=== PATIENT | male | born 1955 | race Caucasian/White ===

== ENCOUNTER 2017-02-02 16:49 | Inpatient (IN) | payer OTHER ==
[2017-02-02] VITALS (10 sets, daily range): BP systolic 117–141; BP diastolic 76–92; PULSE 102–117; RESP 18–26; TEMP 97.3; O2SAT 88–98
[2017-02-02] MEDS ORDERED: DIPHTH/TETANUS/ACEL PERTUSSIS (BOOSTER) 0.5 ML VIAL/PFS IM ONE (16:56)
[2017-02-02 17:19] LABS: AUTOMATED NEUTROPHIL # 6.1 TH/MM3 (1.8-7.7); BASOPHIL # 0.1 TH/MM3 (0-0.2); BASOPHIL % 0.7 % (0.0-2.0); EOSINOPHIL # 0.3 TH/MM3 (0-0.4); EOSINOPHIL % 3.2 % (0.0-4.0); HEMATOCRIT 33.9 % (39.0-51.0); HEMO FLAGS DIFF FINAL; LYMPH % 33.1 % (9.0-44.0); LYMPHOCYTE # 3.6 TH/MM3 (1.0-4.8); MEAN CELL VOLUME 87.5 FL (80.0-100.0); MEAN CORPUSCULAR HEMOGLOBIN 29.2 PG (27.0-34.0); MEAN CORPUSCULAR HGB CONC 33.4 % (32.0-36.0); MONO % 7.7 % (0.0-8.0); NEUT % 55.3 % (16.0-70.0); PLATELET COUNT 705 TH/MM3 (150-450); RED BLOOD COUNT 3.88 MIL/MM3 (4.50-5.90); RED CELL DISTRIBUTION WIDTH 13.8 % (11.6-17.2)
[2017-02-02 17:20] LABS: I-STAT POTASSIUM 4.4 MMOL/L (3.5-4.9)
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
[2017-02-02 17:28] LABS: APTT (PATIENT) 25.4 SEC (24.3-30.1)
[2017-02-02] MEDS ORDERED: methylPREDNISolone SOD SUCC 125 MG/2 ML VIAL IV PUSH ONE (17:45)
[2017-02-02] MEDS ORDERED: MORPHINE SULFATE 4 MG/ML INJ IV PUSH ONE (17:45)
[2017-02-02] MEDS ORDERED: RESP: ALBUTEROL 2.5 MG/IPRATROPIUM 0.5 MG NEB (SCH) NEB ONE (17:45)
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
[2017-02-02] MEDS ORDERED: IOHEXOL 350 MG/ML 10 ML VIAL (for RAD DIAG) IV ONE (19:57)
--- NOTE | 2017-02-02 20:28 | RADRPT ---
EXAM DATE/TIME: 02/02/2017 19:48 [facility] COMPARISON: CHEST SINGLE AP, February 02, 2017, 16:47. INDICATIONS : Abnormal chest radiograph. IV CONTRAST: 70 cc Omnipaque 350 (iohexol) IV RADIATION DOSE: 7.70 CTDIvol (mGy) MEDICAL HISTORY : None SURGICAL HISTORY : None. ENCOUNTER: Initial ACUITY: 1 day PAIN SCALE: 0/10 LOCATION: chest TECHNIQUE: Volumetric scanning of the chest was performed. Using automated exposure control and adjustment of t he mA and/or kV according to patient size, radiation dose was kept as low as reasonably achievable to obtain optimal diagnostic quality images. FINDINGS: LUNGS: There is severe baseline emphysema. There is extensive consolidative airspace disease with some assoc iated cystic cavitary change in the left upper lobe. In the contralateral right lung, there are sever al tiny nonspecific noncalcified nodular densities noted. PLEURA: There is no pleural thickening or pleural effusion. MEDIASTINUM: There is alesha enlargement in the left hilum and adjacent mediastinum which may be reactive. AXILLAE: Within normal limits. No lymphadenopathy. SKELETAL: Within normal limits for patient age. MISCELLANEOUS: The visualized upper abdominal organs demonstrate no acute abnormality. CONCLUSION: Left upper lobe consolidative changes. Nonspecific tiny nodules in the contralateral right lung. Poss ibly reactive left hilar and adjacent mediastinal adenopathy. Seth Boateng MD on February 02, 2017 at 20:16 Board Certified Radiologist. This report was verified electronically.
[2017-02-02] MEDS ORDERED: AZITHROMYCIN INJ 500 MG in SODIUM CHLOR 0.9% 250 ML INJ 250 ML IV ONE (21:00)
[2017-02-02] MEDS ORDERED: cefTRIAXone INJ 1,000 MG in SODIUM CHLORIDE 0.9% INJ 100 ML IV ONE (21:00)
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
[2017-02-02] MEDS ORDERED: MORPHINE SULFATE 4 MG/ML INJ IV PRN (21:15)
[2017-02-02] MEDS ORDERED: ACETAMINOPHEN 325 MG TAB PO PRN (21:15)
[2017-02-02] MEDS ORDERED: SODIUM CHLORIDE 0.9% FLUSH 10 ML FLUSH IV FLUSH PRN (21:15)
[2017-02-02] MEDS ORDERED: ONDANSETRON HCL 4 MG/2 ML VIAL IVP PRN (21:15)
[2017-02-02] MEDS ORDERED: BISACODYL 10 MG SUPP RECTAL PRN (21:15)
[2017-02-02] MEDS: SODIUM CHLOR 0.9% 1000 ML INJ 1,000 ML IV SCH (22:02)
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
[2017-02-02] MEDS: methylPREDNISolone SOD SUCC 40 MG/1 ML VIAL IV PUSH SCH (23:14)
[2017-02-02] MEDS: ACETAMINOPHEN/HYDROcodone 325 MG/5 MG TAB PO PRN (23:17)
[2017-02-03] VITALS (8 sets, daily range): BP systolic 97–125; BP diastolic 64–85; PULSE 93–102; RESP 17–18; TEMP 96.1–97.4; O2SAT 82–96
[2017-02-03] MEDS: methylPREDNISolone SOD SUCC 40 MG/1 ML VIAL IV PUSH SCH ×3 (05:45→17:59)
[2017-02-03] MEDS: SILVER SULFADIAZINE 1% CR 400 GM JAR TOPICAL SCH (05:52)
[2017-02-03 07:09] LABS: BASOPHIL % 0.1 % (0.0-2.0); HEMO FLAGS DIFF FINAL; LYMPHOCYTE # 1.1 TH/MM3 (1.0-4.8); MEAN CELL VOLUME 86.6 FL (80.0-100.0); MEAN CORPUSCULAR HGB CONC 32.4 % (32.0-36.0); MONO % 2.1 % (0.0-8.0); NEUT % 84.8 % (16.0-70.0); PLATELET COUNT 600 TH/MM3 (150-450); RED BLOOD COUNT 3.92 MIL/MM3 (4.50-5.90); RED CELL DISTRIBUTION WIDTH 13.8 % (11.6-17.2); WHITE BLOOD COUNT 8.2 TH/MM3 (4.0-11.0)
[2017-02-03 07:38] LABS: ALT (GPT) 33 U/L (12-78); ANION GAP 5 MEQ/L (5-15); AST (GOT) 18 U/L (15-37); BICARBONATE 32.7 MEQ/L (21.0-32.0); BLOOD UREA NITROGEN 14 MG/DL (7-18); CHLORIDE 100 MEQ/L (98-107); GLOMERULAR FILTRATION RATE 210 ML/MIN (>89); POTASSIUM 4.5 MEQ/L (3.5-5.1); SODIUM (NA) 138 MEQ/L (136-145)
[2017-02-03 07:40] LABS: ALKALINE PHOSPHATASE 105 U/L (45-117); TOTAL BILIRUBIN ADULT 0.1 MG/DL (0.2-1.0)
[2017-02-03] MEDS: RESP: ALBUTEROL 2.5 MG/IPRATROPIUM 0.5 MG NEB (SCH) NEB ×4 (08:24→20:20)
[2017-02-03] MEDS: ACETAMINOPHEN/HYDROcodone 325 MG/5 MG TAB PO PRN ×2 (08:52→13:18)
[2017-02-03] MEDS: SODIUM CHLORIDE 0.9% FLUSH 10 ML FLUSH IV FLUSH SCH ×2 (09:00→21:00)
[2017-02-03] MEDS: BUDESONIDE-FORMOTEROL 160/4.5 MCG INHALER INH SCH ×2 (09:27→21:12)
[2017-02-03] MEDS: SODIUM CHLOR 0.9% 1000 ML INJ 1,000 ML IV SCH (10:50)
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
[2017-02-03] MEDS: RESP: ALBUTEROL 2.5 MG/IPRATROPIUM 0.5 MG NEB (PRN) NEB (18:22)
[2017-02-03] MEDS ORDERED: AZITHROMYCIN INJ 500 MG in SODIUM CHLOR 0.9% 250 ML INJ 250 ML IV SCH (21:00)
[2017-02-03] MEDS: AZITHROMYCIN 250 MG TAB PO SCH (21:14)
[2017-02-03] MEDS: cefTRIAXone INJ 1,000 MG in SODIUM CHLORIDE 0.9% INJ 100 ML IV SCH (21:14)
[2017-02-04] VITALS (9 sets, daily range): BP systolic 96–126; BP diastolic 66–89; PULSE 91–108; RESP 17–18; TEMP 96–98.2; O2SAT 92–98
[2017-02-04] MEDS: RESP: ALBUTEROL 2.5 MG/IPRATROPIUM 0.5 MG NEB (PRN) NEB ×6 (00:02→23:52)
[2017-02-04] MEDS: methylPREDNISolone SOD SUCC 40 MG/1 ML VIAL IV PUSH SCH ×4 (00:06→18:46)
[2017-02-04] MEDS: SILVER SULFADIAZINE 1% CR 400 GM JAR TOPICAL SCH (07:52)
[2017-02-04] MEDS: BUDESONIDE-FORMOTEROL 160/4.5 MCG INHALER INH SCH ×2 (07:53→20:09)
[2017-02-04] MEDS: SODIUM CHLORIDE 0.9% FLUSH 10 ML FLUSH IV FLUSH SCH ×2 (07:53→20:10)
[2017-02-04] MEDS: RESP: ALBUTEROL 2.5 MG/IPRATROPIUM 0.5 MG NEB (SCH) NEB (08:50)
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
[2017-02-04] MEDS: SODIUM CHLOR 0.9% 1000 ML INJ 1,000 ML IV SCH (14:24)
[2017-02-04] MEDS: cefTRIAXone INJ 1,000 MG in SODIUM CHLORIDE 0.9% INJ 100 ML IV SCH (20:09)
[2017-02-04] MEDS: AZITHROMYCIN 250 MG TAB PO SCH (20:09)
[2017-02-05] VITALS (7 sets, daily range): BP systolic 113–135; BP diastolic 78–91; PULSE 79–92; RESP 16–18; TEMP 95.5–97.3; O2SAT 94–96
[2017-02-05] MEDS: methylPREDNISolone SOD SUCC 40 MG/1 ML VIAL IV PUSH SCH ×3 (00:13→12:00)
[2017-02-05] MEDS: RESP: ALBUTEROL 2.5 MG/IPRATROPIUM 0.5 MG NEB (PRN) NEB ×3 (04:44→16:25)
[2017-02-05] MEDS: BUDESONIDE-FORMOTEROL 160/4.5 MCG INHALER INH SCH (08:19)
[2017-02-05] MEDS: SODIUM CHLORIDE 0.9% FLUSH 10 ML FLUSH IV FLUSH SCH (08:20)
[2017-02-05] MEDS: SILVER SULFADIAZINE 1% CR 400 GM JAR TOPICAL SCH (08:20)
[2017-02-05] MEDS ORDERED: AZIT250T3 PO (10:09)
[2017-02-05] MEDS ORDERED: SYMB160A INH (10:10)
[2017-02-05] MEDS ORDERED: SILV1CRE20 TOPICAL (10:10)
[2017-02-05] MEDS ORDERED: IPRA17I INH (10:10)
[2017-02-05] MEDS ORDERED: PRED5PAK PO (10:10)
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
[2017-02-05] MEDS: SODIUM CHLOR 0.9% 1000 ML INJ 1,000 ML IV SCH (13:42)
== END 2017-02-05 16:51 | disposition home or self-care (01) | DRG 928 ==
LOC: NEPI 16:49 → EDBD 21:12 → NEDA 21:12 → N06A 22:39
PROVIDERS: ADMIT Hospitalist; ATTEND Hospitalist
DX: T20.30XA Burn of third degree of head, face, and neck, unspecified site, initial encounter (principal); J15.9 Unspecified bacterial pneumonia; J96.20 Acute and chronic respiratory failure, unspecified whether with hypoxia or hypercapnia; J44.1 Chronic obstructive pulmonary disease with (acute) exacerbation; Z99.81 Dependence on supplemental oxygen; T20.20XA Burn of second degree of head, face, and neck, unspecified site, initial encounter; F17.210 Nicotine dependence, cigarettes, uncomplicated; Z66 Do not resuscitate; X08.8XXA Exposure to other specified smoke, fire and flames, initial encounter; Y93.89 Activity, other specified; Y92.009 Unspecified place in unspecified non-institutional (private) residence as the place of occurrence of the external cause; Y99.9 Unspecified external cause status; Z88.0 Allergy status to penicillin; R91.8 Other nonspecific abnormal finding of lung field; D75.89 Other specified diseases of blood and blood-forming organs; T23.001A Burn of unspecified degree of right hand, unspecified site, initial encounter; T23.002A Burn of unspecified degree of left hand, unspecified site, initial encounter
CPT/HCPCS: 71010; 71260; 80053; 82435; 82565; 82947; 84132; 84295; 84520; 85025; 85610; 85730; 86850; 86900; 86901; 90471; 90715; 94640; 94664; 96374; 96375; 99291; G0390; J0456; J0696; J2270; J2920; J2930; J7030; J7050; Q9967

== ENCOUNTER 2017-06-03 16:14 | Inpatient (IN) | payer OTHER ==
[~2017-06-03] VITALS: Ht 175.3 cm; Wt 65.0 kg
[~2017-06-03 16:14] MED LIST: AZIT250T3 PO; IPRA17I INH; PRED5PAK PO; SILV1CRE20 TOPICAL; SYMB160A INH
[2017-06-03 16:19] VITALS: BP 154/94; PULSE 112; RESP 24; TEMP 98.3
[2017-06-03] MEDS ORDERED: SODIUM CHLORIDE 0.9% FLUSH 10 ML FLUSH IVF PRN ×2 (16:30→18:15)
[2017-06-03 16:35] VITALS: BP 154/94; PULSE 105; RESP 22; TEMP 98.3; O2SAT 95
--- NOTE | 2017-06-03 16:41 | PD ---
HPI Chief Complaint: Chest Pain Time Seen by Provider: 16:24 Travel History International Travel<30 days: No Contact w/Intl Traveler<30days: No Traveled to known affect area: No History of Present Illness HPI 61-year-old male complains of chest pain and shortness of breath. Patient has history COPD. Patient states that he started smoking a few days ago. Patient states that he has productive cough for the past several days. Patient states that the shortness of breath is worse for the past 2 days. Patient denies any fever chills. Patient complain left sided chest pain. Patient states the pain is sharp and intermittent and localized to left chest. Patient denies any pain radiation. Patient denies palpitation nausea vomiting diaphoresis. Patient denies any fever chills. Patient is on home O2, 3 L nasal ranula. Patient has been using nebulizer machine at home. Patient denies any history of CAD. Patient denies history hypertension, diabetes, dyslipidemia. EMS was called. Patient was given albuterol treatment 1 and Solu-Medrol 125 mg IV. PFSH Past Medical History Cardiovascular Problems: Yes COPD: Yes Respiratory: Yes (COPD, PNEUMONIA) ?: Not Social History Alcohol Use: No Tobacco Use: Yes Substance Use: No Allergies-Medications (Allergen,Severity, Reaction): Coded Allergies: penicillin G (Unverified Allergy, Severe, Anaphylaxis, 06/03/17) Reported Meds & Prescriptions Reported Meds & Active Scripts Active Prednisone (21) 5 mg tab Dose Pack (Prednisone) 5 Mg Dspk 5 Mg PO DIRECTED Atrovent HFA 12.9 GM Inh (Ipratropium [place]) 17 Mcg/Act Aer 2 Puff INH Q6HR PRN Silvadene Topical (Silver Sulfadiazine) 1 % Cream 1 Applic TOPICAL DAILY Symbicort Inh (Budesonide/Formoterol Fumarate) 160-4.5 Mcg/Act Aero 2 Puff INH Q12HR Azithromycin 250 Mg Tab 500 Mg PO DAILY@21 Review of Systems General / Constitutional: No: Fever Eyes: No: Visual changes HENT: No: Headaches Cardiovascular: Positive: Chest Pain or Discomfort Respiratory: Positive: Shortness of Breath, Wheezing Gastrointestinal: No: Abdominal Pain Genitourinary: No: Dysuria Musculoskeletal: No: Pain Skin: No Rash Neurologic: No: Weakness Psychiatric: No: Depression Endocrine: No: Polydipsia Hematologic/Lymphatic: No: Easy Bruising Physical Exam Narrative GENERAL: Well-nourished, well-developed patient. SKIN: Focused skin assessment warm/dry. HEAD: Normocephalic. EYES: No scleral icterus. No injection or drainage. NECK: Supple, trachea midline. No JVD or lymphadenopathy. CARDIOVASCULAR: Regular rate and rhythm without murmurs, gallops, or rubs. RESPIRATORY: Breath sounds decreased bilaterally. Patient with accessory muscle use. Patient has poor air exchange. Patient has mild bilateral wheezes. GASTROINTESTINAL: Abdomen soft, non-tender, nondistended. MUSCULOSKELETAL: No cyanosis, or edema. BACK: Nontender without obvious deformity. No CVA tenderness. Neurologic exam normal. Data Data Last Documented VS Vital Signs Date Time Temp Pulse Resp B/P (MAP) Pulse Ox O2 Delivery O2 Flow Rate FiO2 06/03/17 16:35 98.3 105 22 154/94 (114) 95 Nasal Cannula 4.00 Orders Orders Complete Blood Count With Diff (06/03/17 16:25) Comprehensive Metabolic Panel (06/03/17 16:25) B-Type Natriuretic Peptide (06/03/17 16:25) Act Partial Throm Time (Ptt) (06/03/17 16:25) Prothrombin Time / Inr (Pt) (06/03/17 16:25) Ckmb (Isoenzyme) Profile (06/03/17 16:25) Troponin I (06/03/17 16:25) Influenzae A/B Antigen (06/03/17 16:25) Blood Culture (06/03/17 16:25) Iv Access Insert/Monitor (06/03/17 16:25) Electrocardiogram (06/03/17 16:25) Ecg Monitoring (06/03/17 16:25) Oximetry (06/03/17 16:25) Oxygen Administration (06/03/17 16:25) Chest, Single Ap (06/03/17 16:25) Sodium Chloride 0.9% Flush (Ns Flush) (06/03/17 16:30) Albuterol-Ipratropium Neb (Duoneb Neb) (06/03/17 16:30) Ct Thorax/ Chest W Iv Contrast (06/03/17 17:17) CKMB (06/03/17 16:30) CKMB% (06/03/17 16:30) Ceftriaxone Inj (Rocephin Inj) (06/03/17 17:45) Azithromycin Inj (Zithromax Inj) (06/03/17 17:45) Labs Laboratory Tests Test 06/03/17 16:30 White Blood Count 9.1 TH/MM3 Red Blood Count 4.83 MIL/MM3 Hemoglobin 14.0 GM/DL Hematocrit 41.9 % Mean Corpuscular Volume 86.8 FL Mean Corpuscular Hemoglobin 28.9 PG Mean Corpuscular Hemoglobin Concent 33.3 % Red Cell Distribution Width 13.7 % Platelet Count 297 TH/MM3 Mean Platelet Volume 7.2 FL Neutrophils (%) (Auto) 67.7 % Lymphocytes (%) (Auto) 21.7 % Monocytes (%) (Auto) 7.3 % Eosinophils (%) (Auto) 2.6 % Basophils (%) (Auto) 0.7 % Neutrophils # (Auto) 6.2 TH/MM3 Lymphocytes # (Auto) 2.0 TH/MM3 Monocytes # (Auto) 0.7 TH/MM3 Eosinophils # (Auto) 0.2 TH/MM3 Basophils # (Auto) 0.1 TH/MM3 CBC Comment DIFF FINAL Differential Comment Prothrombin Time 10.7 SEC Prothromb Time International Ratio 1.0 RATIO Activated Partial Thromboplast Time 28.2 SEC Blood Urea Nitrogen 9 MG/DL Creatinine 0.59 MG/DL Random Glucose 95 MG/DL Total Protein 7.7 GM/DL Albumin 3.4 GM/DL Calcium Level 9.1 MG/DL Alkaline Phosphatase 125 U/L Aspartate Amino Transf (AST/SGOT) 19 U/L Alanine Aminotransferase (ALT/SGPT) 16 U/L Total Bilirubin 0.4 MG/DL Sodium Level 140 MEQ/L Potassium Level 4.7 MEQ/L Chloride Level 102 MEQ/L Carbon Dioxide Level 33.6 MEQ/L Anion Gap 4 MEQ/L Estimat Glomerular Filtration Rate 140 ML/MIN Total Creatine Kinase 103 U/L Creatine Kinase MB 1.5 NG/ML Troponin I LESS THAN 0.02 NG/ML MDM Medical Decision Making Medical Screen Exam Complete: Yes Emergency Medical Condition: Yes Interpretation(s) Last Impressions Chest X-Ray 06/03/17 9855 Signed Impressions: Service Date/Time: Saturday, June 03, 2017 16:50 - CONCLUSION: Residual or recurrent mild left lung infiltrates. Seth Boateng MD CBC within normal limit. CMP within normal limit. Bicarbonate 33.6. Creatinine 0.59. Cardiac enzymes are normal. Differential Diagnosis Differential diagnosis including acute exacerbation COPD, bronchitis, pneumonia. Narrative Course 61-year-old male with shortness of breath and expiratory wheezes and poor air exchange. Patient was given Solu Medrol and albuterol treatment by EMS. Albuterol with Atrovent unit dose treatment 3. Rocephin 1 g IV. Zithromax 500 mg IV. Diagnosis Primary Impression: Community acquired bacterial pneumonia Additional Impression: COPD with acute exacerbation Admitting Information Admitting Physician Requests: Admit Dennys Madrigal MD Jun 03, 2017 16:41
[2017-06-03 16:47] LABS: AUTOMATED NEUTROPHIL # 6.2 TH/MM3 (1.8-7.7); BASOPHIL # 0.1 TH/MM3 (0-0.2); BASOPHIL % 0.7 % (0.0-2.0); EOSINOPHIL # 0.2 TH/MM3 (0-0.4); EOSINOPHIL % 2.6 % (0.0-4.0); HEMATOCRIT 41.9 % (39.0-51.0); HEMO FLAGS DIFF FINAL; LYMPH % 21.7 % (9.0-44.0); MEAN CELL VOLUME 86.8 FL (80.0-100.0); MEAN CORPUSCULAR HEMOGLOBIN 28.9 PG (27.0-34.0); MEAN CORPUSCULAR HGB CONC 33.3 % (32.0-36.0); MONO % 7.3 % (0.0-8.0); NEUT % 67.7 % (16.0-70.0); PLATELET COUNT 297 TH/MM3 (150-450); RED BLOOD COUNT 4.83 MIL/MM3 (4.50-5.90); RED CELL DISTRIBUTION WIDTH 13.7 % (11.6-17.2); WHITE BLOOD COUNT 9.1 TH/MM3 (4.0-11.0)
[2017-06-03] MEDS: RESP: ALBUTEROL 2.5 MG/IPRATROPIUM 0.5 MG NEB (SCH) INH ×2 (16:55→20:00)
--- NOTE | 2017-06-03 16:58 | RADRPT ---
EXAM DATE/TIME: 06/03/2017 16:50 [facility] COMPARISON: CHEST SINGLE AP, February 02, 2017, 16:47. INDICATIONS : Left side chest pain, short of breath. MEDICAL HISTORY : Chronic obstructive pulmonary disease. SURGICAL HISTORY : None. ENCOUNTER: Initial ACUITY: 3 days PAIN SCORE: 4/10 LOCATION: Left chest FINDINGS: There is patchy airspace opacity in the left lung, primarily in the left perihilar and suprahilar reg ion laterally at site of previous large mass or consolidative infiltrate noted on previous exam. Righ t lung is clear with prominent changes of bullous emphysema. Cardiac contours are grossly stable. CONCLUSION: Residual or recurrent mild left lung infiltrates. Seth Boateng MD on June 03, 2017 at 16:55 Board Certified Radiologist. This report was verified electronically.
[2017-06-03 16:59] LABS: APTT (PATIENT) 28.2 SEC (24.3-30.1); PROTHROMBIN TIME - PATIENT 10.7 SEC (9.8-11.6)
[2017-06-03 17:21] LABS: ALKALINE PHOSPHATASE 125 U/L (45-117); ALT (GPT) 16 U/L (12-78); ANION GAP 4 MEQ/L (5-15); AST (GOT) 19 U/L (15-37); BICARBONATE 33.6 MEQ/L (21.0-32.0); BLOOD UREA NITROGEN 9 MG/DL (7-18); CHLORIDE 102 MEQ/L (98-107); CREATINE KINASE 103 U/L (39-308); GLOMERULAR FILTRATION RATE 140 ML/MIN (>89); POTASSIUM 4.7 MEQ/L (3.5-5.1); SODIUM (NA) 140 MEQ/L (136-145); TOTAL BILIRUBIN ADULT 0.4 MG/DL (0.2-1.0)
[2017-06-03 17:34] LABS: CKMB 1.5 NG/ML (0.5-3.6)
[2017-06-03] MEDS ORDERED: cefTRIAXone INJ 1,000 MG in SODIUM CHLORIDE 0.9% INJ 100 ML IV ONE (17:45)
[2017-06-03] MEDS ORDERED: AZITHROMYCIN INJ 500 MG in SODIUM CHLOR 0.9% 250 ML INJ 250 ML IV ONE (17:45)
[2017-06-03] MEDS ORDERED: IOHEXOL 350 MG/ML 10 ML VIAL (for RAD DIAG) IVCONTRAST ONE (18:02)
[2017-06-03] MEDS ORDERED: ACETAMINOPHEN 325 MG TAB PO PRN ×3 (18:15→18:30)
[2017-06-03] MEDS ORDERED: ONDANSETRON HCL 4 MG/2 ML VIAL IV PRN (18:15)
--- NOTE | 2017-06-03 18:19 | RADRPT ---
EXAM DATE/TIME: 06/03/2017 17:54 [facility] COMPARISON: CHEST SINGLE AP, June 03, 2017, 16:50. CT THORAX W CONTRAST, February 02, 2017, 19:48. INDICATIONS : Abnormal chest xray. Mass. IV CONTRAST: 70 cc Omnipaque 350 (iohexol) IV RADIATION DOSE: 3.44 CTDIvol (mGy) MEDICAL HISTORY : Chronic obstructive pulmonary disease. SURGICAL HISTORY : Hernia. ENCOUNTER: Initial ACUITY: 1 day PAIN SCALE: 0/10 LOCATION: chest TECHNIQUE: Volumetric scanning of the chest was performed. Using automated exposure control and adjustment of t he mA and/or kV according to patient size, radiation dose was kept as low as reasonably achievable to obtain optimal diagnostic quality images. DICOM format image data is available electronically for review and comparison. Follow-up recommendations for detected pulmonary nodules are based at a minimum on nodule size and pa tient risk factors according to Fleischner Society Guidelines. FINDINGS: LUNGS: Severe emphysematous chronic obstructive pulmonary disease is again noted. Bronchiectasis with associ ated interstitial thickening is identified in the left upper lobe. A 1 cm nodule is identified in the lingula. A small pleural based nodular density is seen in the right posterior costophrenic angle keagan suring 7 mm. There is adjacent clinical banding suggesting scar or atelectasis. PLEURA: Pleural thickening is identified along the posterior left upper lobe. There is no evidence of pleural effusion. MEDIASTINUM: The heart and great vessels demonstrate no acute abnormality. Small subcentimeter lymph nodes are see n in the aortopulmonary window. AXILLAE: Within normal limits. No lymphadenopathy. SKELETAL: Within normal limits for patient age. MISCELLANEOUS: The visualized upper abdominal organs demonstrate no acute abnormality. CONCLUSION: 1. Left upper lobe bronchiectasis with associated interstitial infiltrate versus post inflammatory sc arring. No evidence of consolidating airspace disease. 2. 1 cm lingular nodule. 3. 7 mm right lower lobe nodule. 4. Consider PET CT for further evaluation. Anthony Olivas MD on June 03, 2017 at 18:05 Board Certified Radiologist. This report was verified electronically.
[2017-06-03] MEDS ORDERED: LACTULOSE SYRUP 20 GM/30 ML CUP PO PRN (18:30)
[2017-06-03] MEDS ORDERED: MORPHINE SULFATE 4 MG/ML INJ IV PRN ×2 (18:30)
[2017-06-03] MEDS ORDERED: MAGNESIUM HYDROXIDE SUSP 30 ML CUP PO PRN (18:30)
[2017-06-03] MEDS ORDERED: NALOXONE HCL 0.4 MG/ML AMP IV PRN (18:30)
[2017-06-03] MEDS ORDERED: oxyCODONE/ACETAMINOPHEN 10 MG/325 MG TAB PO PRN (18:30)
[2017-06-03] MEDS ORDERED: GLUCAGON 1 MG/ML VIAL OTHER PRN (18:30)
[2017-06-03] MEDS ORDERED: SODIUM CHLORIDE 0.9% FLUSH 10 ML FLUSH IV FLUSH PRN ×2 (18:30)
[2017-06-03] MEDS ORDERED: oxyCODONE/ACETAMINOPHEN 5 MG/325 MG TAB PO PRN (18:30)
[2017-06-03] MEDS ORDERED: ONDANSETRON HCL 4 MG/2 ML VIAL IVP PRN (18:30)
[2017-06-03] MEDS ORDERED: BISACODYL 10 MG SUPP RECTAL PRN (18:30)
[2017-06-03] MEDS ORDERED: PROCHLORPERAZINE 25 MG SUPP PR PRN (18:30)
[2017-06-03] MEDS ORDERED: SENNOSIDES 8.6 MG TAB PO PRN (18:30)
[2017-06-03] MEDS ORDERED: DEXTROSE 50% IN WATER 50 ML VIAL(D50) IV PRN (18:30)
[2017-06-03 18:34] VITALS: O2SAT 95
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
[2017-06-03] MEDS ORDERED: ALPRAZolam 0.25 MG TAB PO PRN (19:00)
[2017-06-03 20:58] LABS: BLOOD, URINE SMALL (NEG); COMMENT (UR) CULT NOT INDICATED; CULTURE IF INDICATED CULT NOT INDICATED; GLUCOSE,URINE NEG (NEG); KETONE, URINE NEG (NEG); NITRITE,URINE NEG (NEG); PH, URINE 7.5 (5.0-8.5); URINE COLOR LIGHT-YELLOW (YELLW/STRAW)
[2017-06-03] MEDS: BUDESONIDE-FORMOTEROL 160/4.5 MCG INHALER INH SCH (21:00)
[2017-06-03] MEDS ORDERED: SODIUM CHLORIDE 0.9% FLUSH 10 ML FLUSH IV FLUSH SCH ×2 (21:00)
[2017-06-03 21:20] VITALS: BP 135/79; PULSE 79; RESP 18; TEMP 97.5; O2SAT 97
[2017-06-03] MEDS: ENOXAPARIN SODIUM 40 MG/0.4 ML SYRINGE SQ SCH (21:56)
[2017-06-03] MEDS: SODIUM CHLORIDE 0.9% FLUSH 10 ML FLUSH IV FLUSH SCH (21:57)
[2017-06-03] MEDS: DOCUSATE SODIUM 50 MG/SENNA 8.6 MG TAB PO SCH (21:57)
[2017-06-03] MEDS: FAMOTIDINE 20 MG TAB PO SCH (21:57)
[2017-06-03] MEDS: methylPREDNISolone SOD SUCC 125 MG/2 ML VIAL IVP SCH (21:57)
[2017-06-03] MEDS: guaiFENesin E.R. 600 MG TAB PO SCH (21:57)
[2017-06-03] MEDS: RESP: ALBUTEROL 2.5 MG/3 ML NEB (PRN) INH (22:22)
[2017-06-03 22:27] VITALS: O2SAT 96
[2017-06-03 23:45] VITALS: BP 119/73; PULSE 84; RESP 18; TEMP 96.9; O2SAT 94
[2017-06-04] VITALS (8 sets, daily range): BP systolic 108–125; BP diastolic 70–81; PULSE 92–107; RESP 17–19; TEMP 94–97.9; O2SAT 91–95
[2017-06-04 01:01] LABS: CREATINE KINASE 92 U/L (39-308)
[2017-06-04] MEDS: RESP: ALBUTEROL 2.5 MG/IPRATROPIUM 0.5 MG NEB (SCH) INH ×6 (01:35→19:18)
[2017-06-04] MEDS: methylPREDNISolone SOD SUCC 125 MG/2 ML VIAL IVP SCH ×4 (04:11→21:54)
[2017-06-04 05:11] LABS: ALKALINE PHOSPHATASE 115 U/L (45-117); ALT (GPT) 16 U/L (12-78); ANION GAP 7 MEQ/L (5-15); AST (GOT) 8 U/L (15-37); BICARBONATE 30.4 MEQ/L (21.0-32.0); BLOOD UREA NITROGEN 15 MG/DL (7-18); CHLORIDE 100 MEQ/L (98-107); CREATINE KINASE 102 U/L (39-308); FREE T4 1.02 NG/DL (0.76-1.46); GLOMERULAR FILTRATION RATE 111 ML/MIN (>89); MAGNESIUM 2.2 MG/DL (1.5-2.5); POTASSIUM 3.9 MEQ/L (3.5-5.1); SODIUM (NA) 137 MEQ/L (136-145); TOTAL BILIRUBIN ADULT 0.1 MG/DL (0.2-1.0)
[2017-06-04 05:41] LABS: AUTOMATED NEUTROPHIL # 5.3 TH/MM3 (1.8-7.7); BASOPHIL % 0.1 % (0.0-2.0); EOSINOPHIL % 0.1 % (0.0-4.0); HEMATOCRIT 38.5 % (39.0-51.0); HEMO FLAGS DIFF FINAL; LYMPH % 11.2 % (9.0-44.0); LYMPHOCYTE # 0.7 TH/MM3 (1.0-4.8); MEAN CELL VOLUME 86.7 FL (80.0-100.0); MEAN CORPUSCULAR HEMOGLOBIN 28.7 PG (27.0-34.0); MEAN CORPUSCULAR HGB CONC 33.2 % (32.0-36.0); NEUT % 86.6 % (16.0-70.0); PLATELET COUNT 254 TH/MM3 (150-450); RED BLOOD COUNT 4.45 MIL/MM3 (4.50-5.90); RED CELL DISTRIBUTION WIDTH 13.9 % (11.6-17.2); WHITE BLOOD COUNT 6.1 TH/MM3 (4.0-11.0)
[2017-06-04] MEDS: FAMOTIDINE 20 MG TAB PO SCH ×2 (08:51→21:55)
[2017-06-04] MEDS: guaiFENesin E.R. 600 MG TAB PO SCH ×2 (08:51→21:54)
[2017-06-04] MEDS: DOCUSATE SODIUM 50 MG/SENNA 8.6 MG TAB PO SCH ×2 (08:51→21:55)
[2017-06-04] MEDS: SODIUM CHLORIDE 0.9% FLUSH 10 ML FLUSH IV FLUSH SCH ×2 (08:52→21:54)
[2017-06-04] MEDS: BUDESONIDE-FORMOTEROL 160/4.5 MCG INHALER INH SCH ×2 (08:53→21:55)
[2017-06-04] MEDS: SILVER SULFADIAZINE 1% CR 50 GM JAR TOPICAL SCH (09:00)
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
[2017-06-04] MEDS ORDERED: DEXTROSE 50% IN WATER 50 ML VIAL(D50) IV PRN (11:00)
[2017-06-04] MEDS ORDERED: GLUCAGON 1 MG/ML VIAL OTHER PRN (11:00)
--- NOTE | 2017-06-04 11:16 | EKG ---
Date Performed: 06/03/2017 Time Performed: 16:29:32 PTAGE: 61 years EKG: Sinus rhythm WITH SINUS ARRHYTHMIA NORMAL ECG NO PREVIOUS TRACING DOCTOR: Lindsey Edmondson Interpretating Date/Time 06/04/2017 11:14:51
[2017-06-04] MEDS: INSULIN ASPART SUPPLEMENTAL SCALE SQ SCH ×3 (12:32→21:58)
[2017-06-04 13:50] LABS: HEMOGLOBIN A1a 1.1 %; HEMOGLOBIN Ao 82.5 %; HEMOGLOBIN LA1C 3.3 %; HEMOGLOBIN P3 4.6 %
[2017-06-04] MEDS: AZITHROMYCIN INJ 500 MG in SODIUM CHLOR 0.9% 250 ML INJ 250 ML IV SCH (16:16)
[2017-06-04] MEDS: RESP: ALBUTEROL 2.5 MG/3 ML NEB (PRN) INH (18:03)
[2017-06-04] MEDS: cefTRIAXone INJ 1,000 MG in SODIUM CHLORIDE 0.9% INJ 100 ML IV SCH (21:52)
[2017-06-04] MEDS: ENOXAPARIN SODIUM 40 MG/0.4 ML SYRINGE SQ SCH (21:55)
[2017-06-05] VITALS (11 sets, daily range): BP systolic 105–133; BP diastolic 70–92; PULSE 85–106; RESP 16–18; TEMP 96.4–98.5; O2SAT 92–100
[2017-06-05] MEDS: RESP: ALBUTEROL 2.5 MG/IPRATROPIUM 0.5 MG NEB (SCH) INH ×6 (01:26→19:09)
[2017-06-05] MEDS: methylPREDNISolone SOD SUCC 125 MG/2 ML VIAL IVP SCH ×4 (03:00→21:07)
[2017-06-05] MEDS: INSULIN ASPART SUPPLEMENTAL SCALE SQ SCH ×4 (06:11→21:00)
[2017-06-05 08:57] LABS: AUTOMATED NEUTROPHIL # 13.2 TH/MM3 (1.8-7.7); HEMATOCRIT 37.1 % (39.0-51.0); HEMO FLAGS DIFF FINAL; LYMPH % 8.3 % (9.0-44.0); LYMPHOCYTE # 1.3 TH/MM3 (1.0-4.8); MEAN CELL VOLUME 86.7 FL (80.0-100.0); MEAN CORPUSCULAR HEMOGLOBIN 28.6 PG (27.0-34.0); MONO % 6.2 % (0.0-8.0); NEUT % 85.5 % (16.0-70.0); PLATELET COUNT 255 TH/MM3 (150-450); RED BLOOD COUNT 4.28 MIL/MM3 (4.50-5.90); RED CELL DISTRIBUTION WIDTH 14.1 % (11.6-17.2); WHITE BLOOD COUNT 15.4 TH/MM3 (4.0-11.0)
[2017-06-05] MEDS: DOCUSATE SODIUM 50 MG/SENNA 8.6 MG TAB PO SCH ×2 (09:00→21:05)
[2017-06-05] MEDS: BUDESONIDE-FORMOTEROL 160/4.5 MCG INHALER INH SCH ×2 (09:00→21:00)
[2017-06-05] MEDS: guaiFENesin E.R. 600 MG TAB PO SCH ×2 (09:16→21:06)
[2017-06-05] MEDS: FAMOTIDINE 20 MG TAB PO SCH ×2 (09:16→21:07)
[2017-06-05] MEDS: SODIUM CHLORIDE 0.9% FLUSH 10 ML FLUSH IV FLUSH SCH ×2 (09:17→21:00)
[2017-06-05] MEDS: SILVER SULFADIAZINE 1% CR 50 GM JAR TOPICAL SCH (09:18)
[2017-06-05 09:19] LABS: ANION GAP 4 MEQ/L (5-15); AST (GOT) 9 U/L (15-37); BICARBONATE 32.7 MEQ/L (21.0-32.0); BLOOD UREA NITROGEN 15 MG/DL (7-18); CHLORIDE 97 MEQ/L (98-107); GLOMERULAR FILTRATION RATE 219 ML/MIN (>89); MAGNESIUM 2.2 MG/DL (1.5-2.5); POTASSIUM 3.7 MEQ/L (3.5-5.1); SODIUM (NA) 134 MEQ/L (136-145)
[2017-06-05 09:21] LABS: ALT (GPT) 13 U/L (12-78)
[2017-06-05 09:23] LABS: ALKALINE PHOSPHATASE 94 U/L (45-117); TOTAL BILIRUBIN ADULT 0.2 MG/DL (0.2-1.0)
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
[2017-06-05] MEDS: AZITHROMYCIN INJ 500 MG in SODIUM CHLOR 0.9% 250 ML INJ 250 ML IV SCH (16:57)
[2017-06-05] MEDS: cefTRIAXone INJ 1,000 MG in SODIUM CHLORIDE 0.9% INJ 100 ML IV SCH (21:06)
[2017-06-05] MEDS: ENOXAPARIN SODIUM 40 MG/0.4 ML SYRINGE SQ SCH (21:07)
[2017-06-06] VITALS (9 sets, daily range): BP systolic 107–164; BP diastolic 60–94; PULSE 77–110; RESP 16–18; TEMP 95.8–98.6; O2SAT 92–100
[2017-06-06] MEDS: RESP: ALBUTEROL 2.5 MG/IPRATROPIUM 0.5 MG NEB (SCH) INH ×6 (00:06→18:34)
[2017-06-06] MEDS: methylPREDNISolone SOD SUCC 125 MG/2 ML VIAL IVP SCH ×4 (02:27→20:44)
[2017-06-06] MEDS: INSULIN ASPART SUPPLEMENTAL SCALE SQ SCH ×5 (08:00→20:52)
[2017-06-06] MEDS: FAMOTIDINE 20 MG TAB PO SCH ×2 (08:30→20:43)
[2017-06-06] MEDS: guaiFENesin E.R. 600 MG TAB PO SCH ×2 (08:30→20:43)
[2017-06-06] MEDS: SILVER SULFADIAZINE 1% CR 50 GM JAR TOPICAL SCH (08:31)
[2017-06-06] MEDS: DOCUSATE SODIUM 50 MG/SENNA 8.6 MG TAB PO SCH ×2 (08:31→20:44)
[2017-06-06] MEDS: BUDESONIDE-FORMOTEROL 160/4.5 MCG INHALER INH SCH ×2 (08:34→20:44)
[2017-06-06] MEDS: SODIUM CHLORIDE 0.9% FLUSH 10 ML FLUSH IV FLUSH SCH ×2 (09:00→20:44)
[2017-06-06 11:00] LABS: AUTOMATED NEUTROPHIL # 9.1 TH/MM3 (1.8-7.7); BASOPHIL % 0.1 % (0.0-2.0); HEMO FLAGS DIFF FINAL; LYMPH % 7.8 % (9.0-44.0); LYMPHOCYTE # 0.8 TH/MM3 (1.0-4.8); MEAN CORPUSCULAR HEMOGLOBIN 28.8 PG (27.0-34.0); MEAN CORPUSCULAR HGB CONC 33.1 % (32.0-36.0); MONO % 1.9 % (0.0-8.0); NEUT % 90.2 % (16.0-70.0); PLATELET COUNT 268 TH/MM3 (150-450); RED BLOOD COUNT 4.48 MIL/MM3 (4.50-5.90); RED CELL DISTRIBUTION WIDTH 14.5 % (11.6-17.2)
[2017-06-06 11:13] LABS: ALT (GPT) 16 U/L (12-78); ANION GAP 6 MEQ/L (5-15); AST (GOT) 9 U/L (15-37); BICARBONATE 31.7 MEQ/L (21.0-32.0); BLOOD UREA NITROGEN 15 MG/DL (7-18); CHLORIDE 103 MEQ/L (98-107); GLOMERULAR FILTRATION RATE 186 ML/MIN (>89); MAGNESIUM 2.3 MG/DL (1.5-2.5); SODIUM (NA) 141 MEQ/L (136-145)
[2017-06-06 11:16] LABS: ALKALINE PHOSPHATASE 89 U/L (45-117); TOTAL BILIRUBIN ADULT 0.2 MG/DL (0.2-1.0)
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
[2017-06-06] MEDS: AZITHROMYCIN INJ 500 MG in SODIUM CHLOR 0.9% 250 ML INJ 250 ML IV SCH (17:16)
[2017-06-06] MEDS: ENOXAPARIN SODIUM 40 MG/0.4 ML SYRINGE SQ SCH (20:43)
[2017-06-06] MEDS: cefTRIAXone INJ 1,000 MG in SODIUM CHLORIDE 0.9% INJ 100 ML IV SCH (20:43)
[2017-06-07] MEDS: RESP: ALBUTEROL 2.5 MG/IPRATROPIUM 0.5 MG NEB (SCH) INH ×4 (00:41→11:28)
[2017-06-07] MEDS: methylPREDNISolone SOD SUCC 125 MG/2 ML VIAL IVP SCH ×2 (04:29→08:32)
[2017-06-07 04:30] VITALS: BP 104/64; PULSE 83; RESP 17; TEMP 97.9; O2SAT 96
[2017-06-07 07:35] VITALS: PULSE 80
[2017-06-07 07:40] VITALS: O2SAT 98
[2017-06-07 08:00] VITALS: BP 116/89; PULSE 80; RESP 19; TEMP 97.2; O2SAT 94
[2017-06-07] MEDS: INSULIN ASPART SUPPLEMENTAL SCALE SQ SCH (08:00)
[2017-06-07] MEDS: FAMOTIDINE 20 MG TAB PO SCH (08:31)
[2017-06-07] MEDS: guaiFENesin E.R. 600 MG TAB PO SCH (08:31)
[2017-06-07] MEDS: SODIUM CHLORIDE 0.9% FLUSH 10 ML FLUSH IV FLUSH SCH (09:00)
[2017-06-07] MEDS: DOCUSATE SODIUM 50 MG/SENNA 8.6 MG TAB PO SCH (09:00)
[2017-06-07] MEDS: BUDESONIDE-FORMOTEROL 160/4.5 MCG INHALER INH SCH (09:00)
[2017-06-07] MEDS: SILVER SULFADIAZINE 1% CR 50 GM JAR TOPICAL SCH (09:00)
[2017-06-07] MEDS ORDERED: LEVA500T20 PO (11:10)
[2017-06-07] MEDS ORDERED: PRED5PAK PO (11:10)
[2017-06-07] MEDS ORDERED: LACTTAB8 PO (11:10)
[2017-06-07] MEDS ORDERED: AZIT250T3 PO (11:10)
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
[2017-06-07] MEDS ORDERED: WALKER/ADULT/FO1 MIS (11:16)
== END 2017-06-07 12:37 | disposition home or self-care (01) | DRG 190 ==
LOC: NEPE 16:14 → NEDA 18:04 → N06B 21:17
PROVIDERS: ADMIT Hospitalist; ATTEND Hospitalist
DX: J44.0 Chronic obstructive pulmonary disease with (acute) lower respiratory infection (principal); J15.9 Unspecified bacterial pneumonia; Z99.81 Dependence on supplemental oxygen; J44.1 Chronic obstructive pulmonary disease with (acute) exacerbation; T20.00XD Burn of unspecified degree of head, face, and neck, unspecified site, subsequent encounter; T27 Burn and corrosion of respiratory tract; X08.8XXD Exposure to other specified smoke, fire and flames, subsequent encounter; F41.9 Anxiety disorder, unspecified; F32.9 Major depressive disorder, single episode, unspecified; F17.210 Nicotine dependence, cigarettes, uncomplicated; Z85.828 Personal history of other malignant neoplasm of skin
CPT/HCPCS: 71010; 71260; 80053; 81001; 82550; 82552; 82948; 83036; 83735; 83880; 84100; 84439; 84443; 84484; 85025; 85610; 85730; 87040; 87070; 87205; 87804; 93005; 94150; 94640; 94664; J0456; J0696; J1650; J1815; J2930; J7050; J7613; Q9967